=== PATIENT | female | born 1950 | race Caucasian/White ===

== ENCOUNTER 2018-01-01 12:44 | Outpatient (CLI) | payer MEDICARE | END 2018-01-01 12:45 | disposition home or self-care (01) | LOC: BICMAMMO 12:44 | PROVIDERS: ATTEND Family Medicine | DX: Z12.31 Encounter for screening mammogram for malignant neoplasm of breast (principal); Z13.820 Encounter for screening for osteoporosis; M85.88 Other specified disorders of bone density and structure, other site; M81.0 Age-related osteoporosis without current pathological fracture; Z78.0 Asymptomatic menopausal state | CPT/HCPCS: 77063; 77067; 77080 ==

== ENCOUNTER 2019-01-13 13:52 | Outpatient (CLI) | payer MEDICARE ==
--- NOTE | 2019-01-13 15:50 | RAD ---
TWO VIEWS THORACIC SPINE: DAET: 01/13/2019. PROVIDED CLINICAL HISTORY: Osteoporosis. FINDINGS: Thoracic alignment appears normal. Vertebral body heights appear preserved. Pedicles appear intact. Multilevel thoracic disk degenerative changes are seen. IMPRESSION: Thoracic spine degenerative change. POS: [facility]
--- NOTE | 2019-01-19 06:43 | MMO ---
Bilateral MAMMO Bilat Screen [facility]. CLINICAL HISTORY: Patient is 68 years old and is seen for screening. The patient has no family history of breast cancer. The patient has no personal history of cancer. VIEWS: The views performed were: bilateral craniocaudal with tomosynthesis and bilateral mediolateral oblique with tomosynthesis. FILMS COMPARED: The present examination has been compared to prior imaging studies performed at [facility] on 01/11/2014, 01/23/2015, 02/08/2016 and 01/01/2018. MAMMOGRAM FINDINGS: There are scattered fibroglandular densities. There are no suspicious masses, suspicious calcifications, or new areas of architectural distortion. IMPRESSION: THERE IS NO MAMMOGRAPHIC EVIDENCE OF MALIGNANCY. A ROUTINE FOLLOW-UP MAMMOGRAM IN 1 YEAR IS RECOMMENDED. THE RESULTS OF THIS EXAM WERE SENT TO THE PATIENT. ACR BI-RADS Category 1 - Negative MAMMOGRAPHY NOTE: 1. A negative mammogram report should not delay a biopsy if a dominant of clinically suspicious mass is present. 2. Approximately 10% to 15% of breast cancers are not detected by mammography. 3. Adenosis and dense breasts may obscure an underlying neoplasm. Reported by: JUAN SNOW MD Electonically Signed: [id number]
== END 2019-01-13 13:53 | disposition home or self-care (01) ==
LOC: BICMAMMO 13:52
PROVIDERS: ATTEND Family Medicine
DX: Z12.31 Encounter for screening mammogram for malignant neoplasm of breast (principal); M81.0 Age-related osteoporosis without current pathological fracture; M47.814 Spondylosis without myelopathy or radiculopathy, thoracic region
CPT/HCPCS: 72070; 77063; 77067

== ENCOUNTER 2019-01-20 08:45 | Outpatient (CLI) | payer MEDICARE ==
--- NOTE | 2019-01-20 12:09 | BD ---
DEXA BONE DENSITY STUDY: Date: 01/20/19 COMPARISON: 01/01/18. HISTORY: 68-year-old postmenopausal female for screening for osteoporosis. FINDINGS: Lumbar Spine: BMD (g/cm2) L1 0.822 T-Score: -1.5 L2 0.849 T-Score: -1.6 L3 0.792 T-Score: -2.7 L4 0.752 T-Score: -2.8 L1-L4 0.801 T-Score: -2.2 Left Femoral Neck: 0.584 T-Score: -2.4 Total Left Femur: 0.809 T-Score: -1.1 Right Femoral Neck: 0.635 T-Score: -1.9 Total Right Femur: 0.869 T-Score: -0.6 IMPRESSION: Osteopenia. This patient has a 10 year WHO fracture risk of a major osteoporotic fracature of 21% and of a hip fr acture of 4.9%. POS: [facility]
== END 2019-01-20 08:46 | disposition home or self-care (01) ==
LOC: BICMAMMO 08:45
PROVIDERS: ATTEND Internal Medicine Rheumatology
DX: M81.0 Age-related osteoporosis without current pathological fracture (principal); M85.851 Other specified disorders of bone density and structure, right thigh
CPT/HCPCS: 77080

== ENCOUNTER 2020-07-31 13:35 | Outpatient (CLI) | payer MEDICARE ==
--- NOTE | 2020-07-31 15:15 | BD ---
DEXA bone density scan: 07/31/2020 COMPARISON: 01/20/2019. HISTORY: Postmenopausal female undergoing screening for osteoporosis. FINDINGS: Lumbar Spine BMD (g/cm2) L1 0.847 T-Score -1.3 (previous -1.5) L2 0.823 T-Score -1.9 (previous -1.6) L3 0.854 T-Score -2.1 (previous -2.7) L4 0.832 T-Score -2.1 (previous -2.8) L1-L4 0.839 T-Score -1.9 (previous -2.2) Femoral Neck 0.652 T-Score -1.8 (previous -2.4) Total Femur 0.794 T-Score -1.2 (previous -1.1) The FRAX-WHO fracture risk assessment tool reports a 10 year fracture risk in an untreated patient at 16% for major osteoporotic fracture and 3.7% for hip fracture. IMPRESSION: Osteopenia of the interrogated femur and of the lumbar spine correlating with a moderately increased risk for fracture as detailed above. Transcribed Date/Time: 07/31/2020 4:35 PM
== END 2020-07-31 13:36 | disposition home or self-care (01) ==
LOC: BICMAMMO 13:35
PROVIDERS: ATTEND Internal Medicine Rheumatology
DX: M81.0 Age-related osteoporosis without current pathological fracture (principal); M85.88 Other specified disorders of bone density and structure, other site
CPT/HCPCS: 77080

== ENCOUNTER 2021-02-08 09:07 | Outpatient (CLI) | payer MEDICARE | END 2021-02-08 09:08 | disposition home or self-care (01) | LOC: BICMAMMO 09:07 | PROVIDERS: ATTEND Family Medicine | DX: Z12.31 Encounter for screening mammogram for malignant neoplasm of breast (principal) | CPT/HCPCS: 77063; 77067 ==

== ENCOUNTER 2021-04-19 09:00 | Outpatient (CLI) | payer MEDICARE | END 2021-04-19 09:01 | disposition home or self-care (01) | LOC: BICULT 09:00 | PROVIDERS: ATTEND Family Medicine | DX: M79.652 Pain in left thigh (principal) ==

== ENCOUNTER 2021-09-04 05:55 | Day surgery (SDC) | payer MEDICARE ==
[2021-08-29 11:03] VITALS: BMI 27.4
[2021-09-04] MEDS ORDERED: Nitroglycerin 100MG/250ML BOT 250 ML ONE (06:28)
[2021-09-04] MEDS ORDERED: Verapamil 5 MG/2 ML VIAL ONE (06:28)
[2021-09-04] MEDS ORDERED: Heparin 10,000 UNITS/ 10 ML VIAL ONE (06:28)
[2021-09-04] MEDS ORDERED: Lidocaine 1% (PF) 30 ML VIAL ONE (06:28)
[2021-09-04] MEDS ORDERED: Midazolam HCl 2 mg/2 ml Vial ONE (07:04)
[2021-09-04 07:33] LABS: Cardiac Risk 3.2 (Less than 4.5)
[2021-09-04] MEDS ORDERED: Iopamidol 370 76% 50 ML VIAL FS ONE (10:03)
[2021-09-04] MEDS ORDERED: Iopamidol 370 76% 100 ML VIAL ONE (10:03)
== END 2021-09-04 10:35 | disposition home or self-care (01) ==
LOC: SDC 05:55
PROVIDERS: ATTEND Internal Medicine Cardiovascular Disease
PROC: 4A023N7 Measurement of Cardiac Sampling and Pressure, Left Heart, Percutaneous Approach (ICD-10-PCS; principal; 2021-09-04)
PROC: B2111ZZ Fluoroscopy of Multiple Coronary Arteries using Low Osmolar Contrast (ICD-10-PCS; 2021-09-04)
DX: R07.89 Other chest pain (principal); R94.39 Abnormal result of other cardiovascular function study; I25.10 Atherosclerotic heart disease of native coronary artery without angina pectoris; I25.84 Coronary atherosclerosis due to calcified coronary lesion; E11.9 Type 2 diabetes mellitus without complications; I10 Essential (primary) hypertension; E78.00 Pure hypercholesterolemia, unspecified; I44.7 Left bundle-branch block, unspecified; R55 Syncope and collapse; Z79.82 Long term (current) use of aspirin; Z79.84 Long term (current) use of oral hypoglycemic drugs; Z79.899 Other long term (current) drug therapy; Z88.5 Allergy status to narcotic agent
CPT/HCPCS: 80061; 93458; 99152; 99153; J1644; J2001; J2250; Q9967

== ENCOUNTER 2022-02-11 09:39 | Outpatient (CLI) | payer MEDICARE | END 2022-02-11 09:40 | disposition home or self-care (01) | LOC: BICMAMMO 09:39 | PROVIDERS: ATTEND Family Medicine | DX: Z12.31 Encounter for screening mammogram for malignant neoplasm of breast (principal) | CPT/HCPCS: 77063; 77067 ==

== ENCOUNTER 2023-01-30 08:22 | Outpatient (CLI) | payer MEDICARE | END 2023-01-30 08:23 | disposition home or self-care (01) | LOC: BICMAMMO 08:22 | PROVIDERS: ATTEND Family Medicine | DX: Z13.820 Encounter for screening for osteoporosis (principal); M81.0 Age-related osteoporosis without current pathological fracture; Z78.0 Asymptomatic menopausal state | CPT/HCPCS: 77080 ==

== ENCOUNTER 2023-03-20 08:31 | Outpatient (CLI) | payer MEDICARE | END 2023-03-20 08:32 | disposition home or self-care (01) | LOC: BICMAMMO 08:31 | PROVIDERS: ATTEND Family Medicine | DX: Z12.31 Encounter for screening mammogram for malignant neoplasm of breast (principal); N63.20 Unspecified lump in the left breast, unspecified quadrant; Z80.3 Family history of malignant neoplasm of breast | CPT/HCPCS: 77063; 77067 ==

== ENCOUNTER 2023-03-26 07:58 | Outpatient (CLI) | payer MEDICARE | END 2023-03-26 07:59 | disposition home or self-care (01) | LOC: BICMAMMO 07:58 | PROVIDERS: ATTEND Family Medicine | DX: N60.12 Diffuse cystic mastopathy of left breast (principal) | CPT/HCPCS: 76642; 77065; G0279 ==

== ENCOUNTER 2023-06-03 12:28 | Emergency (ER) | payer MEDICARE ==
[~2023-06-03 12:28] MED LIST: Iopamidol-370 76% 500 ML MDV (1 ML CHARGE) ONE
[2023-06-03 13:00] LABS: #Monocytes 0.3 thou/uL (0.11-0.59); #Neutrophils 2.4 thou/uL (1.40-6.50); %Basophils 0.6 % (0.0-1.0); %Monocytes 8.3 % (0.0-10.0); %Neutrophils 76.8 % (42.0-75.0); Hematocrit 40.6 % (36.0-47.0); Hemoglobin 14.2 g/dL (12.0-16.0); Mean Corpuscular Hemoglobin 34.5 pg (27.0-31.0); Mean Corpuscular Volume 98.8 fl (78.0-98.0); Mean Platelet Volume 9.9 fL (7.4-10.4); Platelet Count 136 10x3/uL (130-400); RBC Distribution Width 11.6 % (11.5-14.5); Red Blood Cell (RBC) Count 4.11 mill/uL (4.20-5.40); White Blood Cell (WBC) Count 3.2 10x3/uL (4.8-10.8)
[2023-06-03 13:23] LABS: Acetaminophen Less than 10 mcg/mL (10.0-30.0); Alcohol Less than 10.0 mg/dL (Less than 10); Lipase 30 U/L (8-78); Magnesium 1.8 mg/dL (1.6-2.6); Salicylate Less than 8.0 mg/dL (15.0-30.0)
[2023-06-03 13:24] LABS: ALT (SGPT) 17 U/L (8-55); AST (SGOT) 27 U/L (5-34); Albumin 3.9 g/dL (3.4-4.8); Alkaline Phosphatase 95 U/L (40-110); Anion Gap 12 mmol/L (10-20); BUN (Urea Nitrogen) 8 mg/dL (9.8-20.1); Bilirubin, Total 0.9 mg/dL (0.2-1.2); Calc. Creatinine Clearance 0 mL/min (70-130); Calcium 8.5 mg/dL (7.8-10.44); Carbon Dioxide 24 mmol/L (23-31); Chloride 100 mmol/L (98-107); Estimated GFR 51; Globulin 2.9 g/dL (2.4-3.5); Glucose 226 mg/dL (83-110); Potassium 3.8 mmol/L (3.5-5.1); Protein, Total 6.8 g/dL (5.8-8.1); Sodium 132 mmol/L (136-145)
[2023-06-03 13:58] LABS: SARS-CoV-2 NAA Rapid Test Not Detected (NotDetected)
[2023-06-03 16:37] LABS: Bacteria/HPF None Seen HPF (None Seen); Bilirubin Negative (Negative); Blood, Urine Negative (Negative); CAUTI Indications for Culture Dysuria,urgency,freq; Clarity Clear (Clear); Glucose, Urine (Dipstick) 500 mg/dL (Negative); Ketone, Urine 20 mg/dL (Negative); Leukocyte 75 Leu/uL (Negative); Nitrite Negative (Negative); Protein, Urine (Dipstick) 20 mg/dL (Neg-Trace); RBC/HPF 0-3 HPF (0-3); Specific Gravity, Urine 1.042 (1.002-1.036); Squamous Epithelial 0-3 HPF (0-3); Urobilinogen Normal mg/dL (Less than 2); pH, Urine 5.5 (5.0-9.0)
[2023-06-03 16:44] LABS: Amphetamine Not Detected (NotDetected); Barbiturates Screen Not Detected (NotDetected); Benzodiazepine Screen Not Detected (NotDetected); Cocaine Metabolite Screen Not Detected (NotDetected); Methadone Not Detected (NotDetected); Methamphetamine Not Detected (NotDetected); Opiate Screen Not Detected (NotDetected); Oxycodone Screen Not Detected (NotDetected); Phencyclidine (PCP) Not Detected (NotDetected); THC/Cannabinoid Screen Not Detected (NotDetected); Tricyclic Screen Not Detected (NotDetected)
[2023-06-03] MEDS ORDERED: Acetaminophen 500 MG TAB ONE (16:53)
[2023-06-03 16:55] LABS: Urine Culture Reflex No No
== END 2023-06-03 17:19 | disposition home or self-care (01) ==
LOC: ERS 12:28
DX: J10.1 Influenza due to other identified influenza virus with other respiratory manifestations (principal); K57.90 Diverticulosis of intestine, part unspecified, without perforation or abscess without bleeding; R53.81 Other malaise; R73.9 Hyperglycemia, unspecified; E66.9 Obesity, unspecified; I10 Essential (primary) hypertension
CPT/HCPCS: 0240U; 71045; 74177; 80053; 80306; 80307; 81001; 83605; 83690; 83735; 85025; 93005; 96360; 96361; 99285; 36415; Q9967

== ENCOUNTER 2024-04-15 12:55 | Outpatient (CLI) | payer MEDICARE | END 2024-04-15 12:56 | disposition home or self-care (01) | LOC: BICMAMMO 12:55 | PROVIDERS: ATTEND Family Medicine | DX: N64.9 Disorder of breast, unspecified (principal) | CPT/HCPCS: 77066; G0279 ==

== ENCOUNTER 2025-02-11 14:30 | Emergency (ER) | payer MEDICARE ==
[2025-02-11 15:37] LABS: ALT (SGPT) 8 U/L (Less than 34); AST (SGOT) 19 U/L (11-34); Albumin 3.4 g/dL (3.1-4.5); Alkaline Phosphatase 84 U/L (40-110); Anion Gap 15 mmol/L (10-20); BUN (Urea Nitrogen) 8 mg/dL (9.8-20.1); Bilirubin, Total 0.6 mg/dL (0.3-1.2); Calc. Creatinine Clearance 0 mL/min (70-130); Calcium 8.8 mg/dL (7.8-10.44); Carbon Dioxide 24 mmol/L (23-31); Chloride 106 mmol/L (98-107); Globulin 3.0 g/dL (2.4-3.5); Glucose 131 mg/dL (83-110); Potassium 4.2 mmol/L (3.5-5.1); Sodium 141 mmol/L (136-145)
[2025-02-11 15:52] LABS: #Basophils Less than 0.03 10x3/uL (0.0-0.2); #Eosinophils Less than 0.03 10x3/uL (0.0-0.7); #Monocytes 0.41 10x3/uL (0.11-0.59); #Neutrophils 2.27 10x3/uL (1.40-6.50); %Basophils 0.6 % (0.0-1.0); %Eosinophils 0.6 % (0.0-10.0); %Lymphocytes 14.4 % (21.0-51.0); %Monocytes 12.8 % (0.0-10.0); %Neutrophils 71.0 % (42.0-75.0); Hematocrit 35.8 % (36.0-47.0); Hemoglobin 12.5 g/dL (12.0-16.0); Mean Corpuscular Hemoglobin 34.0 pg (27.0-31.0); Mean Corpuscular Volume 97.3 fL (78.0-98.0); Platelet Count 133 10x3/uL (130-400); Red Blood Cell (RBC) Count 3.68 mill/uL (4.20-5.40); White Blood Cell (WBC) Count 3.20 10x3/uL (4.8-10.8)
[2025-02-11] MEDS ORDERED: Dexamethasone 10 MG/ML VIAL ONE (16:10)
== END 2025-02-11 17:27 | disposition home or self-care (01) ==
LOC: ERS 14:30
DX: U07.1 COVID-19 (principal); E11.9 Type 2 diabetes mellitus without complications; I10 Essential (primary) hypertension
CPT/HCPCS: 70450; 71045; 80053; 82962; 84484; 85025; 87426; 93005; J1100; 36416; 96374

== ENCOUNTER 2025-04-25 13:24 | Outpatient (CLI) | payer MEDICARE | END 2025-04-25 13:25 | disposition home or self-care (01) | LOC: BICMAMMO 13:24 | PROVIDERS: ATTEND Family Medicine | DX: Z12.31 Encounter for screening mammogram for malignant neoplasm of breast (principal); Z80.3 Family history of malignant neoplasm of breast | CPT/HCPCS: 77063; 77067 ==